=== PATIENT | female | born 1975 | race Caucasian/White ===

== ENCOUNTER → 2024-10-01 | Outpatient (CLI) | payer BC ==
[2024-10-01 16:26] LABS: PROGESTERONE 0.38 NG/ML; TESTOSTERONE 18.0 NG/DL (14-76)
== END ==
LOC: M PLALAB 14:25
PROVIDERS: ATTEND Advanced Practice Midwife
DX: N95.1 Menopausal and female climacteric states (principal)

== ENCOUNTER → 2024-10-22 | Outpatient (CLI) | payer BC | LOC: M WHC 10:51 | PROVIDERS: ATTEND Advanced Practice Midwife | DX: R92.343 Mammographic extreme density, bilateral breasts (principal) ==

== ENCOUNTER → 2025-01-26 | Outpatient (CLI) | payer BC ==
[2025-01-26 10:39] LABS: PLATELET COUNT, AUTOMATED 303 10^3/uL (150-450)
[2025-01-26 10:46] LABS: ALT/SGPT 15.0 U/L (7.0-40); AST/SGOT 21.0 U/L (<34); CALCIUM LEVEL 9.2 MG/DL (8.5-10.1); CARBON DIOXIDE LEVEL 29.0 MMOL/L (20-31); CHLORIDE LEVEL 101.0 MMOL/L (98-107); CHOLESTEROL LEVEL 202.0 MG/DL (<200); CHOLESTEROL RISK RATIO 2.38 (<5); CREATININE FOR GFR 0.89 MG/DL (0.55-1.30); GLOMERULAR FILTRATION RATE 78.9 (>51); LDL CHOLESTEROL 97.3 MG/DL (<100); NON-HDL-C 117.3 MG/DL; POTASSIUM SERUM 4.8 MMOL/L (3.5-5.1); SODIUM LEVEL 138.0 MMOL/L (136-145); TOTAL 25(OH) VITAMIN D 46.8 NG/ML (20.0-100.0); TRIGLYCERIDES LEVEL 100.0 MG/DL (<150)
[2025-01-26 10:48] LABS: FREE T4 1.17 NG/DL (0.89-1.76)
[2025-01-26 11:04] LABS: ESTIMATED AVERAGE GLUCOSE 100.0 MG/DL (60-110)
== END ==
LOC: M PLALAB 08:19
PROVIDERS: ATTEND Family Medicine
DX: Z13.1 Encounter for screening for diabetes mellitus (principal); G43.919 Migraine, unspecified, intractable, without status migrainosus; F41.9 Anxiety disorder, unspecified; E55.9 Vitamin D deficiency, unspecified; Z13.220 Encounter for screening for lipoid disorders